=== PATIENT | male | born 1995 | race Caucasian/White ===

== ENCOUNTER 2017-06-24 15:28 | Emergency (ER) | payer OTHER ==
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
[2017-06-24] MEDS ORDERED: LET GEL TOPICAL 1 EA SYR TP ONE (15:39)
[2017-06-24 15:40] VITALS: RESP 16; TEMP 97.9
[2017-06-24] MEDS ORDERED: fentaNYL 100 MCG/2 ML INJ ONE ×2 (16:59→17:35)
[2017-06-24] MEDS ORDERED: fentaNYL 100 MCG/2 ML INJ IVP ONE ×2 (17:04→17:48)
[2017-06-24] MEDS ORDERED: PROPOFOL 200 MG/20 ML VIAL ONE (17:23)
[2017-06-24] MEDS ORDERED: PROPOFOL 200 MG/20 ML VIAL IVP ONE (17:48)
[2017-06-24] MEDS ORDERED: HYDROCOD/APAP 5/325 PREPACK#6 BTL TAKEHOME ONE ×2 (18:49→18:50)
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
[2017-06-24 19:03] VITALS: BP 177/90; PULSE 100; O2SAT 95
== END 2017-06-24 19:03 | disposition home or self-care (01) ==
PROC: 2W3CX1Z Immobilization of Right Lower Arm using Splint (ICD-10-PCS; principal; 2017-06-24)
DX: S62.012A Displaced fracture of distal pole of navicular [scaphoid] bone of left wrist, initial encounter for closed fracture (principal); S80.211A Abrasion, right knee, initial encounter; S80.212A Abrasion, left knee, initial encounter; S30.810A Abrasion of lower back and pelvis, initial encounter; S90.511A Abrasion, right ankle, initial encounter; V23.9XXA Unspecified motorcycle rider injured in collision with car, pick-up truck or van in traffic accident, initial encounter
CPT/HCPCS: J2704; J3010

== ENCOUNTER 2017-07-16 05:30 | Day surgery (SDC) | payer OTHER, MEDICAID ==
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
[2017-07-16] MEDS ORDERED: ceFAZolin 2 GM/SWFI 2 GM/20 ML SYR IVP ONE (05:57)
[2017-07-16] MEDS ORDERED: LIDOCAINE 1% 2 ML INJ ID PRN (05:58)
[2017-07-16] MEDS ORDERED: LR 1,000 ML IV ONE (05:58)
--- NOTE | 2017-07-16 06:52 | PDHPUP ---
History & Physical Update H&P update statement: This history and physical update is based on an assessment of the patient which was completed after admission or registration (within 24 hours), but prior to the surgery/procedure. H&P update: H&P reviewed & patient examined, no change in patient's condition since H&P completed
[2017-07-16] MEDS ORDERED: BUPIVACAINE 0.5% 30 ML SDV ONE (06:59)
[2017-07-16] MEDS ORDERED: MIDAZOLAM 2 MG/2 ML VIAL IVP ONE (07:00)
--- NOTE | 2017-07-16 07:02 | PDANEPAE ---
ANE History of Present Illness Patient presents for R wrist surgery ANE Past Medical History - Cardiovascular History Hx Hypertension: No Hx Arrhythmias: No Hx Chest Pain: No Hx Coronary Artery / Peripheral Vascular Disease: No Hx CHF / Valvular Disease: No Hx Palpitations: No - Pulmonary History Hx COPD: No Hx Asthma/Reactive Airway Disease: No Hx Recent Upper Respiratory Infection: No Hx Oxygen in Use at Home: No Hx Sleep Apnea: No Sleep Apnea Screening Result - Last Documented: Negative - Neurologic History Hx Cerebrovascular Accident: No Hx Seizures: No Hx Dementia: No - Endocrine History Hx Diabetes: No - Renal History Hx Renal Disorders: No - Liver History Hx Hepatic Disorders: No - Neurological & Psychiatric Hx Hx Neurological and Psychiatric Disorders: No - Cancer History Hx Cancer: No - Congenital Disorder History Hx Congenital Disorders: No - GI History Hx Gastrointestinal Disorders: No - Chronic Pain History Chronic Pain: Yes (RT WRIST) - Surgical History Prior Surgeries: TONSILLECTOMY ANE Review of Systems Review of Systems: - Exercise capacity Exercise capacity: >=4 METS METS (RN): 6 METS ANE Patient History - Allergies Allergies/Adverse Reactions: No Known Allergies Allergy (Unverified 06/24/17 15:39) - Home Medications Home Medications: IBUPROFEN PRN 07/10/17 [Last Taken 07/11/17] - NPO status NPO Status: no food or drink >8 hours NPO Since - Liquids (Date): 07/15/17 NPO Since - Liquids (Time): 21:30 NPO Since - Solids (Date): 07/15/17 NPO Since - Solids (Time): 12:00 - Anes Hx Anes Hx: no prior problems - Smoking Hx Smoking Status: Never smoked - Family Anes Hx Family Hx Anesthesia Complications: NEG ANE Labs/Vital Signs - Vital Signs Blood Pressure: 127/82 Heart Rate: 81 Respiratory Rate: 20 O2 Sat (%): 95 Height: 180.34 cm Weight: 87.997 kg ANE Physical Exam - Airway Neck exam: FROM Mallampati Score: Class 1 Mouth exam: jansen - Pulmonary Pulmonary: no respiratory distress - Cardiovascular Cardiovascular: regular rate and rhythym - ASA Status ASA Status: I ANE Anesthesia Plan Anesthesia Plan: GA w LMA (RBA discussed)
[2017-07-16] MEDS ORDERED: MIDAZOLAM 2 MG/2 ML VIAL ONE (07:05)
[2017-07-16] MEDS ORDERED: fentaNYL 100 MCG/2 ML INJ ONE ×4 (07:08→09:16)
[2017-07-16] MEDS ORDERED: PROPOFOL 200 MG/20 ML VIAL ONE ×2 (07:08→07:17)
[2017-07-16] MEDS ORDERED: PROPOFOL/EMULSION 500 MG/50 ML BOTTLE IV ONE (07:23)
[2017-07-16] MEDS ORDERED: ONDANSETRON 4 MG/2 ML VIAL ONE (07:24)
[2017-07-16] MEDS ORDERED: DEXAMETHASONE 4 MG/ML VIAL ONE (07:24)
[2017-07-16] MEDS ORDERED: KETOROLAC 30 MG/1 ML SDV ONE (08:20)
[2017-07-16] MEDS ORDERED: fentaNYL 100 MCG/2 ML INJ IVP PRN (08:23)
[2017-07-16] MEDS ORDERED: HYDROCODONE/APAP 5/325 TAB PO PRN (08:23)
[2017-07-16] MEDS ORDERED: LR 500 ML IV PRN (08:23)
[2017-07-16] MEDS ORDERED: OXYCODONE/APAP 5/325 TAB PO PRN (08:23)
[2017-07-16] MEDS ORDERED: NALOXONE HCL 0.4 MG/ML INJ IVP PRN (08:23)
--- NOTE | 2017-07-16 08:56 | POSTOPPROG ---
Post Op Note Date of Operation: 07/16/17 Surgeon: Nasir Shi Anesthesiologist: Jacqueline Anesthesia: GET(General Endotracheal) Pre-op Diagnosis: perilunate dislocation right Post-op Diagnosis: same Procedure: CR/PCP lunate, S-L lig recon, CTR Inf/Abcess present in the surg proc area at time of surgery?: No EBL: Minimal Complications: none
--- NOTE | 2017-07-16 09:11 | POSTANESTH ---
Post Anesthetic Evaluation Cardiovascular Status: Normal, Stable Respiratory Status: Normal, Stable Level of Consciousness/Mental Status: Can Participate in Eval, Mildly Sleepy, Arousable Pain Control: Adequate, Prn Tx Ordered Nausea/Vomiting Control: Adequate, Prn Tx Ordered Complications Possibly Related to Anesthesia: None Noted
[2017-07-16] MEDS ORDERED: HYDROCODONE/APAP 5/325 TAB ONE ×2 (09:46→10:41)
[2017-07-16 10:25] VITALS: RESP 16; TEMP 98.1; O2SAT 96
[2017-07-16 10:52] VITALS: BP 151/92; PULSE 92
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
== END 2017-07-16 11:01 | disposition home or self-care (01) ==
LOC: FSGY 05:30
PROVIDERS: ATTEND Orthopaedic Surgery
PROC: 0PS Upper Bones, Reposition (ICD-10-PCS; principal; 2017-07-16 07:15)
PROC: 0PQ Upper Bones, Repair (ICD-10-PCS; principal; 2017-07-16 07:15)
PROC: 0LQ60ZZ Repair Left Lower Arm and Wrist Tendon, Open Approach (ICD-10-PCS; principal; 2017-07-16 07:15)
PROC: 01N50ZZ Release Median Nerve, Open Approach (ICD-10-PCS; principal; 2017-07-16 07:15)
DX: S62.022A Displaced fracture of middle third of navicular [scaphoid] bone of left wrist, initial encounter for closed fracture (principal); V28.4XXA Motorcycle driver injured in noncollision transport accident in traffic accident, initial encounter; Y92.414 Local residential or business street as the place of occurrence of the external cause; Y99.8 Other external cause status
CPT/HCPCS: C1713; J0690; J1100; J1885; J2250; J2405; J2704; J3010

== ENCOUNTER 2017-08-20 09:46 | Day surgery (SDC) | payer OTHER, MEDICAID ==
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
[2017-08-20] MEDS ORDERED: ceFAZolin 2 GM/SWFI 2 GM/20 ML SYR IVP ONE (09:53)
[2017-08-20] MEDS ORDERED: LR 1,000 ML IV ONE (09:55)
[2017-08-20] MEDS ORDERED: LIDOCAINE 1% 2 ML INJ ID PRN (09:55)
[2017-08-20] MEDS ORDERED: MIDAZOLAM 2 MG/2 ML VIAL IVP ONE (09:55)
[2017-08-20] MEDS ORDERED: LIDOCAINE 1% 2 ML INJ ONE (09:56)
--- NOTE | 2017-08-20 09:57 | PDANEPAE ---
ANE History of Present Illness Right Scaphoid fx ANE Past Medical History - Cardiovascular History Hx Hypertension: No Hx Arrhythmias: No Hx Chest Pain: No Hx Coronary Artery / Peripheral Vascular Disease: No Hx CHF / Valvular Disease: No Hx Palpitations: No - Pulmonary History Hx COPD: No Hx Asthma/Reactive Airway Disease: No Hx Recent Upper Respiratory Infection: No Hx Oxygen in Use at Home: No Hx Sleep Apnea: No Sleep Apnea Screening Result - Last Documented: Negative - Neurologic History Hx Cerebrovascular Accident: No Hx Seizures: No Hx Dementia: No - Endocrine History Hx Diabetes: No - Renal History Hx Renal Disorders: No - Liver History Hx Hepatic Disorders: No - Neurological & Psychiatric Hx Hx Neurological and Psychiatric Disorders: No - Cancer History Hx Cancer: No - Congenital Disorder History Hx Congenital Disorders: No - GI History Hx Gastrointestinal Disorders: No - Other Health History Other Health History: none - Chronic Pain History Chronic Pain: Yes (RT WRIST) - Surgical History Prior Surgeries: 07/16/17 right carpal tunnel released with [place]. TONSILLECTOMY ANE Review of Systems Review of systems is: negative Review of Systems: - Exercise capacity METS (RN): 6 METS ANE Patient History - Allergies Allergies/Adverse Reactions: No Known Allergies Allergy (Verified 08/15/17 12:00) - Home Medications Home Medications: NK [No Known Home Meds] 08/15/17 [Last Taken Unknown] - Anes Hx Anes Hx: no prior problems - Smoking Hx Smoking Status: Never smoked - Alcohol Use Alcohol Use: Other (Up to 750 ml liquor) - Family Anes Hx Family Hx Anesthesia Complications: none ANE Labs/Vital Signs - Vital Signs Height: 180.34 cm Weight: 87.997 kg ANE Physical Exam - Airway Neck exam: FROM Mallampati Score: Class 1 Mouth exam: normal dental/mouth exam - Pulmonary Pulmonary: no respiratory distress, no rales or rhonchi - Cardiovascular Cardiovascular: regular rate and rhythym, no murmur, rub, or gallop - ASA Status ASA Status: I ANE Anesthesia Plan Anesthesia Plan: GA w LMA
[2017-08-20] MEDS ORDERED: BUPIVACAINE/EPI 0.5% 30 ML SDV ONE (09:58)
[2017-08-20] MEDS ORDERED: fentaNYL 250 MCG/5 ML INJ ONE (10:34)
[2017-08-20] MEDS ORDERED: PROPOFOL 200 MG/20 ML VIAL ONE ×2 (10:34→11:52)
[2017-08-20] MEDS ORDERED: PROPOFOL/EMULSION 500 MG/50 ML BOTTLE IV ONE (10:34)
[2017-08-20] MEDS ORDERED: BUPIVACAINE 0.5% 30 ML SDV ONE (10:46)
[2017-08-20] MEDS ORDERED: ONDANSETRON 4 MG/2 ML VIAL ONE (11:33)
[2017-08-20] MEDS ORDERED: DEXAMETHASONE 4 MG/ML VIAL ONE (11:33)
[2017-08-20] MEDS ORDERED: fentaNYL 100 MCG/2 ML INJ ONE (11:52)
[2017-08-20] MEDS ORDERED: NALOXONE HCL 0.4 MG/ML INJ IVP PRN (12:18)
[2017-08-20] MEDS ORDERED: ONDANSETRON 4 MG/2 ML VIAL IVP PRN (12:18)
[2017-08-20] MEDS ORDERED: HYDROmorphONE/DILAUDID 1 MG/ML INJ IVP PRN (12:18)
[2017-08-20] MEDS ORDERED: OXYCODONE/APAP 5/325 TAB PO PRN (12:18)
[2017-08-20] MEDS ORDERED: LR 500 ML IV PRN (12:18)
[2017-08-20] MEDS ORDERED: fentaNYL 100 MCG/2 ML INJ IVP PRN (12:18)
--- NOTE | 2017-08-20 12:31 | POSTOPPROG ---
Post Op Note Date of Operation: 08/20/17 Surgeon: Nasir Shi [employer] Mdm Architect: Tim mcgraw Anesthesiologist: Nick Anesthesia: GET(General Endotracheal) Pre-op Diagnosis: displaced scaphoid fx Post-op Diagnosis: same Procedure: 1. ORIF scaphoid 2. PCP carpal instability Inf/Abcess present in the surg proc area at time of surgery?: No EBL: Minimal Complications: none
[2017-08-20 12:37] VITALS: PULSE 66
[2017-08-20] MEDS ORDERED: HYDROCODONE/APAP 5/325 TAB ONE ×2 (13:01→13:35)
[2017-08-20] MEDS: HYDROCODONE/APAP 5/325 TAB PO PRN ×2 (13:02→13:36)
[2017-08-20 13:33] VITALS: RESP 8
[2017-08-20 14:41] VITALS: BP 120/67; TEMP 98.2; O2SAT 95
--- NOTE | 2017-08-20 15:13 | POSTANESTH ---
Post Anesthetic Evaluation Cardiovascular Status: Normal, Stable Respiratory Status: Normal, Stable Level of Consciousness/Mental Status: Can Participate in Eval Pain Control: Adequate, Prn Tx Ordered Nausea/Vomiting Control: Adequate, Prn Tx Ordered Complications Possibly Related to Anesthesia: None Noted
--- NOTE | 2017-08-20 21:57 | GOP ---
[f rep st] OPERATIVE REPORT DATE OF OPERATION: 08/20/2017 SURGEON: Nasir Shi MD CHANGE MANAGEMENT COORDINATOR: Bryce Barone [employer], [facility] ANESTHESIA: General. ANESTHESIOLOGIST: Dr. Romero. PREOPERATIVE DIAGNOSIS: Displaced proximal scaphoid fracture, right wrist. POSTOPERATIVE DIAGNOSIS: Displaced proximal scaphoid fracture, right wrist; carpal instability. PROCEDURE PERFORMED: FINDINGS: INDICATIONS: Patient is a 21-year-old male who injured his wrist several months ago and sustained a perilunate dislocation. This was close reduced in the ER. He went on to re-dislocate this wrist. H e was then taken the OR for ligament reconstruction, percutaneous pinning. On followup x-rays, he wa s found to have a displaced scaphoid fracture. On previous x-rays, this was nondisplaced. We then p roceeded back to the operating room for fixation of his scaphoid fracture. DESCRIPTION OF PROCEDURE: After appropriate informed consent was obtained, patient was taken to the operating room and placed supine on the operating table. Timeout was performed. Patient was identif ied. Correct site was identified and matched with the radiographs available in the room. He receive d 2 g of Ancef preoperatively. Following the induction of general endotracheal tube anesthesia, the right upper extremity was prepped and draped in usual sterile fashion. Previous pins were removed. Using our dorsally based incision, soft tissues were carefully dissected. He had a great deal of sca r tissue there. We were careful to try and protect the branches I could visualize within the scar ti ssue of the radial nerve to preserve sensation on the dorsum of his wrist. I re-incised the extensor retinaculum. Moved the extensor tendons out of the way. Visualized the scaphoid. It was in a flex ed position. The piece was dislocated volarly. I carefully freed this up, there was still some soft tissue attachments which I hoped to preserve to preserve blood flow to this bone. I then held it in place with 2 K-wires and drilled 1 K-wire and placed a 22 mm long screw with good compression of the fragment. Scaphoid still remained in a flexed position and the lunate was dislocated volarly as well . I then reduced these bones, held them in place with 2 K-wires which gave us satisfactory alignment of them. The scaphoid was in a more neutral position, not flexed. I closed the capsule over the do rsum of the wrist. Extensor retinaculum was also closed using 0 Vicryl. Superficial layers were ana maria sed with 2-0 Vicryl. Skin was closed with 3-0 nylon. I bent the pins. I instilled 20 mL of 0.5% Ma rcaine plain. Final imaging was obtained which showed satisfactory fixation of the scaphoid fracture. Satisfactory reduction of the carpals. A thumb spica splint was applied with the wrist in slight e xtension. The patient was awakened from anesthesia, taken to the recovery room in satisfactory condi tion. There were no immediate intraoperative complications. Tim Barone's assistance was required throughout the entire case. TOTAL TOURNIQUET TIME: 80 minutes at 250 mmHg. IMPLANTS USED: Arthrex headless compression screw x1. /[id number]/MODL
== END 2017-08-20 14:35 | disposition home or self-care (01) ==
LOC: FSGY 09:46
PROVIDERS: ATTEND Orthopaedic Surgery
PROC: 0RPN04Z Removal of Internal Fixation Device from Right Wrist Joint, Open Approach (ICD-10-PCS; principal; 2017-08-20 10:45)
PROC: 0RSN04Z Reposition Right Wrist Joint with Internal Fixation Device, Open Approach (ICD-10-PCS; principal; 2017-08-20 10:45)
DX: S62.031K Displaced fracture of proximal third of navicular [scaphoid] bone of right wrist, subsequent encounter for fracture with nonunion (principal); S63.094D Other dislocation of right wrist and hand, subsequent encounter; M25.331 Other instability, right wrist
CPT/HCPCS: C1713; J0690; J1100; J2250; J2405; J2704; J3010

== ENCOUNTER → 2018-01-18 | Outpatient (CLI) | payer MEDICAID | LOC: FIMAGING 18:57 | PROVIDERS: ATTEND Physician Assistant | DX: M25.531 Pain in right wrist (principal); S62.001D Unspecified fracture of navicular [scaphoid] bone of right wrist, subsequent encounter for fracture with routine healing; S63.511A Sprain of carpal joint of right wrist, initial encounter; S52.614K Nondisplaced fracture of right ulna styloid process, subsequent encounter for closed fracture with nonunion; M24.131 Other articular cartilage disorders, right wrist; R93.6 Abnormal findings on diagnostic imaging of limbs; Z98.890 Other specified postprocedural states ==